=== PATIENT | female | born 1965 | race Caucasian/White ===

== ENCOUNTER → 2021-05-04 | Outpatient (CLI) | payer OTHER ==
[2021-05-04 15:27] LABS: ALBUMIN 2.6 gm/dl (3.1-4.5); BILIRUBIN, DIRECT 0.4 mg/dL (0.0-0.2)
[2021-05-04 15:40] LABS: TOTAL PROTEIN 7.4 gm/dL (6.4-8.2)
== END | disposition home or self-care (01) ==
LOC: LAB 13:55
PROVIDERS: ATTEND Internal Medicine Gastroenterology
DX: C22.1 Intrahepatic bile duct carcinoma (principal); R10.9 Unspecified abdominal pain; R19.4 Change in bowel habit